=== PATIENT | male | born 1955 | race Caucasian/White ===

== ENCOUNTER → 2021-05-28 | Outpatient (CLI) | payer OTHER ==
[~2021-05-28] MED LIST: ATOR1TAB21 PO; CIDA500T2 PO; ELIQ5TAB4 PO; LISI20TA33 PO; VITMTA PO
--- NOTE | 2021-05-28 08:21 | REP ---
INDICATION: SECONDARY POLYCYTHEMIA COMPARISON: None. TECHNIQUE: Real time brito scale ultrasound examination using curved array transducer. FINDINGS: Spleen is normal in contour, echogenicity, and size measuring 10.8 x 8.3 x 3.2 cm (splenic index 287). Left kidney is normal in reniform shape without hydronephrosis and measures 12.1 x 5.9 x 6.1 cm. IMPRESSION: Normal limited left upper quadrant ultrasound <Electronically signed by Jonathan Weston > 05/28/21 [id number]
== END ==
LOC: M RAD 07:09
PROVIDERS: ATTEND Internal Medicine Hematology & Oncology
DX: D75.1 Secondary polycythemia (principal)